=== PATIENT | male | born 1960 | race Caucasian/White ===

== ENCOUNTER 2024-05-18 09:33 | Emergency (ER) | payer BC, SELFPAY | END 2024-05-18 11:52 | disposition home or self-care (01) | LOC: MADERS 09:33 | DX: J18.9 Pneumonia, unspecified organism (principal); J01.00 Acute maxillary sinusitis, unspecified; I10 Essential (primary) hypertension; E78.5 Hyperlipidemia, unspecified; F17.220 Nicotine dependence, chewing tobacco, uncomplicated | CPT/HCPCS: 71046; 87428 ==